=== PATIENT | male | born 2000 | race Caucasian/White ===

== ENCOUNTER 2025-02-01 20:15 | Emergency (ER) | payer OTHER, SELFPAY ==
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
--- OUTSIDE RECORDS SUMMARY | 2025-02-01 20:17 | XMS_ITS | Clinical Summary ---
Author Organization [facility] Address [address] [place] [address] Phone Care Team Providers Care Development Professional Name Role Phone Unavailable Primary Care Provider Unavailabl e Allergies Active Allergy Reactions Criticality Noted Date Comments Amoxicillin Hives High 06/27/2013 Divalproex Other (See Comments) 06/27/2013 Increased ticks and weight gain Medications guanFACINE (TENEX) 1 mg tablet Take 1 Tablet (1 mg) by mouth 4 times daily. 120 Tablet 8 07/26/2016 Active QUEtiapine (SEROquel) 25 mg tablet Take 1 Tablet (25 mg) by mouth 2 times daily. 30 Tablet 8 07/26/2016 Active FLUoxetine (PROzac) 40 mg capsule Take 1 Capsule (40 mg) by mouth daily. 30 Capsule 6 10/03/2016 Active QUEtiapine (SEROquel) 100 mg tablet Take 1 Tablet (100 mg) by mouth daily. 30 Tablet 10 10/03/2016 Active Hospital, Clinic, or Other Facility Administered Medication Ordered Dose Route Frequency Start Date End Date Status FLUoxetine (PROZAC) capsule 10 mg 10 mg Oral DAILY AFTER BREAKFAST 06/12/2014 Active FLUoxetine (PROZAC) capsule 10 mg 10 mg Oral DAILY 06/12/2014 Active Active Problems Problem Noted Date Diagnosed Date ADHD (attention deficit hyperactivity disorder) 06/29/2015 Depression 05/13/2014 Anxiety 05/13/2014 Family History Relation Name Status Comments Brother Alive Father anxiety Alive Maternal Grandmother anxiety Alive Mother Alive Social History Tobacco Use Types Packs/Day Years Used Date Smoking Tobacco: Passive Smo ke Exposure - Never Smoker Smokeless Tobacco: Never Alcohol Use Standard Drinks/Week Comments No 0 (1 standard drink = 0.6 oz pur e alcohol) Sex and Gender Information Value Date Recorded Sex Assigned at Not on file Legal Sex Male 6:19 PM CDT Gender Identity Not on file Sexual Orientation Not on file Occupation Industry Job Start Date Job End Date Not on file Not on file Not on file Not on file Last Filed Vital Signs Vital Sign Reading Time Taken Comments Blood Pressure 130/79 07/26/2016 1:49 PM CDT Pulse 65 07/26/2016 1:49 PM CDT Temperature 37.1 C (98.7 F) 06/30/2013 1:13 PM CDT Respiratory Rate - - Oxygen Saturation - - Inhaled Oxygen Concentration - - Weight 73.9 kg (163 lb) 10/03/2016 1:43 PM TENTER FEEDER Height 174 cm (5' 8.5 ) 10/03/2016 1:43 PM TENTER FEEDER Body Mass Index 24.42 10/03/2016 1:43 PM TENTER FEEDER Plan of Treatment Health Maintenance Due Date Last Done Comments HPV VACCINES (1 - Male 3-dose series) 2014 DTAP/TDAP/TD VACCINES (1 - Tdap) 2018 HEPATITIS B VACCINES (1 of 3 - 19+ 3-dose series) 06/2018 INFLUENZA VACCINE (#1) 2024 Insurance [employer] (Home) [id number] [employer] ACCESS CHOICE [facility] BLUE ACCESS CHOICE
--- OUTSIDE RECORDS SUMMARY | 2025-02-01 20:17 | XMS_ITS | Clinical Summary ---
Author Organization [facility] Address [address] [place] [address] Care Team Providers Care Broomcorn Press Feeder Name Role Phone Bethel Haney MD Primary Care Provider [phone] Allergies Active Allergy Reactions Criticality Noted Date Comments Amoxicillin Unknown 12/27/2020 Valproic Acid Unknown 12/27/2020 Medications No known medications Active Problems No known active problems Social History Tobacco Use Types Packs/Day Years Used Date Smoking Tobacco: Former Smokeless Tobacco: Never Alcohol Use Standard Drinks/Week Comments Not Currently 0 (1 standard drink = 0.6 oz pur e alcohol) AUDIT-C Answer Date Recorded Q1: How often do you have a drink containing alc ohol? Never 12/27/2020 Average Number of Drinks Not on file 021 Frequency of Binge Drinking Not on file 12/13 Sex and Gender Information Value Date Recorded Sex Assigned at Not on file Legal Sex Male 11:03 PM PROOFER PREPRESS Gender Identity Not on file Sexual Orientation Not on file Last Filed Vital Signs Vital Sign Reading Time Taken Comments Blood Pressure 117/76 12/31/2020 8:15 PM CDT Pulse 102 12/31/2020 7:10 PM CDT Temperature 37 C (98.6 F) 12/31/2020 7:10 PM CDT Respiratory Rate 16 12/31/2020 7:10 PM CDT Oxygen Saturation 100% 12/31/2020 8:15 PM CDT Inhaled Oxygen Concentration - - Weight 62.6 kg (138 lb) 12/31/2020 7:10 PM CDT Height 175.3 cm (5' 9 ) 12/31/2020 7:10 PM CDT Body Mass Index 20.38 12/31/2020 7:10 PM CDT Plan of Treatment Health Maintenance Due Date Last Done Comments Annual Physical 2002 DTaP, Tdap and Td Vaccines (6 - Tdap) 2010 05/25/2005, 02/04/2001, 01/24/2000, Additional history exists Hepatitis C 2017 Hepatitis B Vaccines (1 of 3 - 19+ 3-dose series) 2018 COVID-19 Vaccine ( - 2023- season) 2024 HPV Vaccines Completed 08/07/2018, 06/29/2014 Meningococcal Vaccine Aged Out 08/07/2018, 014 No longer eligible based on patient's age to complete this topic Meningococcal B Vaccine Aged Out No l onger eligible based on patient's age to complete this topic Pneumococcal Vaccine: Pediatrics (0 to 5 Years) and At-Risk Patients (6 to 49 Years) Aged Out No longer eligible based on patient's age to complete this topic RSV Immunizations Under 20 Months Aged Out No longer eligible based on patient's age to complete this topic Insurance COUNTS INCLUDE 234 BEDS AT [facility] Care Teams Broomcorn Press Feeder Relationship Specialty [place] [address] [place] [address] [place] [address] PCP - General FAMILY PRACTICE 12/27/20
--- OUTSIDE RECORDS SUMMARY | 2025-02-01 20:17 | XMS_ITS | Clinical Summary ---
Author Organization [facility] Address [address] [place] [address] Phone Care Team Providers Care Moisture Meter Reader Name Role Phone Bethel Haney MD Primary Care Provider [phone] Allergies Active Allergy Reactions Criticality Noted Date Comments Amoxicillin Swelling 08/03/2021 Divalproex Sodium Other (see Comments) 08/03/20 21 seizure Medications No known medications Social History Tobacco Use Types Packs/Day Years Used Date Smoking Tobacco: Never Smokeless Tobacco: Never Alcohol Use Standard Drinks/Week Comments Not Currently 0 (1 standard drink = 0.6 oz pur e alcohol) Sex and Gender Information Value Date Recorded Sex Assigned at Not on file Legal Sex Male 9:35 PM CDT Gender Identity Not on file Sexual Orientation Not on file Last Filed Vital Signs Vital Sign Reading Time Taken Comments Blood Pressure 117/74 12/15/2022 9:32 AM HOUSING COUNSELOR Pulse 95 12/15/2022 9:32 AM HOUSING COUNSELOR Temperature 36.3 C (97.3 F) 12/15/2022 9:32 AM HOUSING COUNSELOR Respiratory Rate 16 12/15/2022 11:37 AM HOUSING COUNSELOR Oxygen Saturation 100% 12/15/2022 9:32 AM HOUSING COUNSELOR Inhaled Oxygen Concentration - - Weight 66.7 kg (147 lb) 12/15/2022 9:32 AM HOUSING COUNSELOR Height 175.3 cm (5' 9 ) 12/15/2022 9:32 AM HOUSING COUNSELOR Body Mass Index 21.71 12/15/2022 9:32 AM HOUSING COUNSELOR Plan of Treatment Health Maintenance Due Date Last Done Comments Hepatitis C Virus (HCV) Screening 1999 Influenza Immunization (#1) 2024 09/29/2016, 1 SARS-COV-2 Immunization ( season) 2024 Respiratory Syncytial Virus (RSV) Immunization (Adult) (1 - 1-dose 75+ series) 2074 Hepatitis B Immunization Completed 001, 05/07/2000, 01/24/2000 Pneumococcal Immunization Combined Aged Out 12/14/2000, 07/26/2000, 05/07/2000 No longer eligible based on patient's age to complete this topic DTaP/Tdap/Td Immunization Discontinued 2010, 05/25/2005, 02/04/2001, Additional history exists TdaP Immunization Completed 06/21/2011 Human Papillomavirus (HPV) Immunization Completed 08/07/2018, 06/29/2014 Meningococcal Immunization (ACWY) Aged Out 08/07/2018, 06/29/2014 No longer eligibl e based on patient's age to complete this topic Rotavirus Immunization Aged Out No lo nger eligible based on patient's age to complete this topic Insurance [facility] Care Teams Moisture Meter Reader Relationship Specialty Start Date End Date Haney, Bethel Calixto, MD [address] [place] [address] PCP - General Family Medicine 12/15/22
--- OUTSIDE RECORDS SUMMARY | 2025-02-01 20:17 | XMS_ITS | Continuity of Care Document ---
Author Organization [facility] Address [address] [place] [address] [address] [place] [address] Phone Care Team Providers Care Door To Door Selling Agent Name Role Phone Susana Damon Unavailable Unavailable Advance Directives Directive Yes / No Effective Date File Name No Information Encounters Encounter Description Practice Location Reason(s) For Visit Diagnoses Date Provider Providers Copied on Encounter [facility], [address] [place] [address] [address], [place], [place], [id number], [place] tel:[phone] [facility] No Information [phone] Marisol Meza. [address] [place] , [address], [place], [address], [place]. tel:[phone] Family History Family Member Type Diagnosis Age At Onset No Information Payers Payer name Insurance type Covered constitution party ID Authoriza tion(s) BS [place] Out [place] [id number] Social History Type Description Quantity Date Captured Comments Sex Male Smoking Status No Information Chief Complaint And Reason For Visit No Information Reason For Referral Reason For Referral No Information History Of Present Illness Encounter Date Complaint History Of Prese nt Illness No Information Functional Status Date Functional Assessmen t No Information Instructions Date Instruction Additional Infor mation No Information Assessments Type Assessment Date No Information Patient Care Teams Name Effective Dates (start - stop) Status Members No Information
--- OUTSIDE RECORDS SUMMARY | 2025-02-01 20:17 | XMS_ITS | Clinical Summary ---
Author Organization [facility] Address [address] [facility] [place] [address] Care Team Providers Care Coverage Analyst Name Role Phone Stanley Art Primary Care Provider [phone] Noam Villarreal MD Unavailable Source Comments [facility],non-owned Affiliates and Associated Physician Practices is amultiple site organization consisting of ambulatory clinics and hospital sitesin [place], [place], [place] and [place]. This disclosure is being madepursuant to the Care Everywhere program and may not contain all information available regarding this patient. Last updated 18.[facility] Allergies Active Allergy Reactions Criticality Noted Date Comments Amoxicillin Rash Low 12/11/2013 Amoxicillin Rash Medium 08/28/2016 Valproic Acid Other 08/28/2016 starring spells Valproic Acid 09/28/2016 made patient stare off and was told was seizing Medications * Be aware that medications may not be up to date on this document. Alwaysverify current medications with the patient. FLUoxetine (PROZAC) 20 MG capsule Take 20 mg by mouth once daily. Active QUEtiapine (SEROQUEL) 25 MG tablet Take 25 mg by mouth 3 times daily. 12.5mg 3 times daily Active pantoprazole EC (PROTONIX) 40 MG tablet Take 1 Tab by mouth once daily 30 Tab 3 08/28/2016 Active ondansetron, disintegrating, (ZOFRAN ODT) 4 MG tablet Take 1 Tab by mouth every 6 hours as needed for Nausea/Vomiti ng Allow tablet to dissolve on the tongue 15 Tab 3 08/28/2016 Active sertraline (ZOLOFT) 25 MG tablet Take 12.5 mg by mouth at bedtime Active FLUoxetine (PROZAC) 10 MG capsule Take 10 mg by mouth at bedtime Active pantoprazole EC (PROTONIX) 40 MG tablet Take 40 mg by mouth once daily Active ondansetron (ZOFRAN) 4 MG tablet Take 4 mg by mouth every 6 hours as needed for Nausea/Vomiti ng Active Active Problems Problem Noted Date Diagnosed Date Pain, abdominal, generalized 09/28/2016 Spondylolisthesis at L5-S1 level - grade I 12/11 Family History Medical History Relation Name Comments Asthma Brother Stomach ulcers Maternal Grandmother Colon polyps Mother Genetic Disorder Mother serrated p olyposis diagnosed at age 40; s/p colectomy Neuropathy Mother small fiber maritza l neuropathy Relation Name Status Comments Brother Maternal Grandmother Mother Social History Tobacco Use Types Packs/Day Years Used Date Smoking Tobacco: Never Assessed Alcohol Use Standard Drinks/Week Comments No 0 (1 standard drink = 0.6 oz pur e alcohol) Sex and Gender Information Value Date Recorded Sex Assigned at Not on file Legal Sex Male 5:45 AM COMMERCIAL INTERNSHIP Gender Identity Not on file Sexual Orientation Not on file Last Filed Vital Signs Vital Sign Reading Time Taken Comments Blood Pressure 102/82 09/28/2016 12:15 PM COMMERCIAL INTERNSHIP Pulse 79 09/28/2016 12:15 PM COMMERCIAL INTERNSHIP Temperature 36.3 C (97.3 F) 09/28/2016 11:42 AM COMMERCIAL INTERNSHIP Respiratory Rate 18 09/28/2016 12:15 PM COMMERCIAL INTERNSHIP Oxygen Saturation 96% 09/28/2016 11:45 AM COMMERCIAL INTERNSHIP Inhaled Oxygen Concentration 100% 09/28/2016 1 1:45 AM COMMERCIAL INTERNSHIP Weight 71.8 kg (158 lb 4.6 oz) 09/28/2016 8:41 A M [employer] INTER[employer] Height 174.2 cm (5' 8.58 ) 09/28/2016 8:41 AM CS T Body Mass Index 23.66 09/28/2016 8:41 AM COMMERCIAL INTERNSHIP Plan of Treatment Health Maintenance Due Date Last Done Comments HIV SCREENING 2014 HPV VACCINE (1 - Male 3-dose series) 2014 HEPATITIS C SCREENING 07/18/2017 DTAP/TDAP/TD VACCINES (1 - Tdap) 2018 HEPATITIS B VACCINE (1 of 3 - 19+ 3-dose series) 2018 COVID-19 VACCINE (2023-2 5 season) 2024 DEPRESSION SCREENING 10/15/2024 INFLUENZA VACCINE (Season Ended) 2025 ZOSTER VACCINE (1 of 2) 2049 HIB VACCINE Aged Out No longer eligi ble based on patient's age to complete this topic MENINGOCOCCAL (Group B) VACC INE SHARED DECISION-MAKING Aged Out No longer eligibl e based on patient's age to complete this topic MENINGOCOCCAL GROUPS A/C/Y/W VACCINE Aged Out No longer eligible b ased on patient's age to complete this topic PNEUMOCOCCAL VACCINE Aged Out No long er eligible based on patient's age to complete this topic Insurance [facility] Address: [facility] [id number] [place] [id number] [place] [address] [place] [address] ANTH Care Teams Coverage Analyst Relationship Specialty Start Date End Date Stanley Art PA [address] [place] [address] PCP - General Physician Veterans' Counselor 09/28/16 Noam Villarreal MD [address] [place] [address] Pediatrics 09/28/16
--- OUTSIDE RECORDS SUMMARY | 2025-02-01 20:17 | XMS_ITS | Encounter Summary ---
Author Organization [facility] Address [address] [place] [address] Care Team Providers Care Solar Energy Technician Name Role Phone Unavailable Primary Care Provider Unavailabl e Reason for Visit * Reason Comments Medication Refill Encounter Details Date Type Department Care Team (Late st Contact Info) Description 01/02/2014 Refill [facility] [place] [address] [place] [address] Akua Serna MD NO ADDRESS ON FILE Social History Tobacco Use Types Packs/Day Years [...] file Not on file Not on file documented as of this encounter Plan of Treatment Not on file documented as of this encounter Visit Diagnoses Not on filedocumented in this encounter
--- OUTSIDE RECORDS SUMMARY | 2025-02-01 20:17 | XMS_ITS | Encounter Summary ---
Author Organization [facility] Address [facility] [place] [address] Care Team Providers Care Manager Marketing Communication Name Role Phone Bethel Haney MD Primary Care Provider [phone] Encounter Details Date Type Department Care Team (Late st Contact Info) Description 03/22/2019 Abstract SFL CONVERSION [address] [place] [id number] , Generic Conversion, Social History Tobacco Use Types Packs/Day Years Used Date Smoking Tobacco: Never Assessed Sex and Gender Information Value Date Recorded Sex Assigned at Not on file Legal Sex Male 11:03 PM EXECUTIVE CHEF ASSISTANT Gender Identity Not on file Sexual Orientation Not on file documented as of this encounter Plan of Treatment Not on file documented as of this encounter Visit Diagnoses Not on filedocumented in this encounter Care Teams Manager Marketing Communication Relationship Specialty Start Date End Date Bethel Haney MD [address] [place] [id number] PCP - General FAMILY PRACTICE 12/27/20 documented as of this encounter
[2025-02-01 20:23] VITALS: BP 130/94; PULSE 94; RESP 15; TEMP 36.9; O2SAT 100
--- OUTSIDE RECORDS SUMMARY | 2025-02-01 20:35 | XMS_ITS | Continuity of Care Document ---
Author Organization [facility] Address [address] [place] [address] [address] [place] [address] Phone Care Team Providers Care Retail Planning Manager Name Role Phone Susana Damon Unavailable Unavailable Advance Directives Directive Yes / No Effective Date File Name No Information Encounters Encounter Description Practice Location Reason(s) For Visit Diagnoses Date Provider Providers Copied on Encounter [facility], [address] [place] [address] [address], [place], [place], [id number], [place] tel:[phone] [facility] No Information [phone] Marisol Meza. [address] [facility] [place] , [address], [place], [address], [place]. tel:[phone] Family History Family Member Type Diagnosis Age At Onset No Information Payers Payer name Insurance type Covered constitution party ID Authoriza tion(s) BS [place] Out Of [place] [id number] Social History Type Description Quantity Date Captured [...]
[2025-02-01] MEDS: TETANUS,DIPHTHERIA,AC PERTUSSIS ADULT 0.5 ML (ADACEL) IM (20:48)
[2025-02-01] MEDS: CLINDAMYCIN HCL 150 MG CAP 450 MG PO (20:51)
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
[2025-02-01 21:11] VITALS: BP 129/72; PULSE 85; RESP 18; TEMP 36.6; O2SAT 100
== END 2025-02-01 21:11 | disposition home or self-care (01) ==
PROVIDERS: Emergency Provider Emergency Medicine; PCP Family Medicine
DX: S61.411A Laceration without foreign body of right hand, initial encounter (principal); L08.9 Local infection of the skin and subcutaneous tissue, unspecified; Z23 Encounter for immunization; Y04.0XXA Assault by unarmed brawl or fight, initial encounter
CPT/HCPCS: 73130; 90471; 90715; 99283